=== PATIENT | female | born 1955 | race Caucasian/White ===

== ENCOUNTER 2020-03-05 16:04 | Emergency (ER) | payer OTHER ==
[~2020-03-05] VITALS: Ht 157.5 cm; Wt 80.2 kg
[2020-03-05] MEDS ORDERED: TRAZ-257 PO (17:57)
[2020-03-05] MEDS ORDERED: OMEP40CA97 PO (17:57)
[2020-03-05] MEDS ORDERED: L-ME1CAP PO (17:57)
[2020-03-05] MEDS ORDERED: SIMV40TA20 PO (17:57)
[2020-03-05] MEDS ORDERED: BENA20TA PO (17:57)
[2020-03-05] MEDS ORDERED: [UNRECOGNIZED DRUG - CODE] PO (17:57)
[2020-03-05] MEDS ORDERED: LEVO25TA5 PO (17:57)
[2020-03-05 18:10] LABS: BASO % 0.3 % (0.0-1.0); EOS # 0.1 10^3/uL (0.0-0.5); EOS % 0.8 % (0.0-3.0); HEMATOCRIT 41.7 % (36.0-47.0); HEMOGLOBIN 13.6 g/dl (12.0-15.5); LYMPH % 27.5 % (24.0-44.0); MEAN CORPUSCULAR HEMOGLOBIN 30.8 pg (27.0-33.0); MEAN CORPUSCULAR HGB CONC 32.6 g/dl (32.0-36.5); MEAN CORPUSCULAR VOLUME 94.3 fl (80.0-96.0); MONO # 0.5 10^3/uL (0.0-0.8); MONO % 7.4 % (0.0-5.0); NEUTROPHILS # 4.6 10^3/uL (1.5-8.5); NEUTROPHILS % 63.7 % (36.0-66.0); PLATELET COUNT, AUTOMATED 243 10^3/uL (150-450); RED BLOOD COUNT 4.42 10^6/uL (4.00-5.40); WHITE BLOOD COUNT 7.1 10^3/uL (4.0-10.0)
[2020-03-05 18:39] LABS: ALBUMIN 4.4 GM/DL (3.2-5.2); ALT/SGPT 48 U/L (12-78); BILIRUBIN,DIRECT 0.2 MG/DL (0.0-0.2); BILIRUBIN,TOTAL 0.5 MG/DL (0.2-1.0); BLOOD UREA NITROGEN 15 MG/DL (7-18); CALCIUM LEVEL 9.8 MG/DL (8.8-10.2); CARBON DIOXIDE LEVEL 26 MEQ/L (21-32); CHLORIDE LEVEL 101 MEQ/L (98-107); CREATININE FOR GFR 0.82 MG/DL (0.55-1.30); GLOMERULAR FILTRATION RATE > 60.0 (>45); GLUCOSE, FASTING 99 MG/DL (70-100); LIPASE 173 U/L (73-393); POTASSIUM SERUM 4.4 MEQ/L (3.5-5.1); SODIUM LEVEL 136 MEQ/L (136-145); TOTAL PROTEIN 7.5 GM/DL (6.4-8.2)
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
--- NOTE | 2020-03-05 18:47 | REPVR ---
PROCEDURE INFORMATION: Exam: US Abdomen, Limited; Right Upper Quadrant Exam date and time: 03/05/2020 6:24 PM Age: 64 years old Clinical indication: Abdominal pain; Flank; Right upper quadrant (ruq); Additional info: Ruq pain with diarrhea TECHNIQUE: Imaging protocol: US abdomen. Real time ultrasound with image documentation. Limited exam focused on the right upper quadrant. COMPARISON: No relevant prior studies available. FINDINGS: Liver: Hepatomegaly measures 18.6 cm. There is hepatic steatosis with sparing in the region of the gallbladder fossa. Gallbladder: Cholelithiasis. No pathologic gallbladder wall thickening or pericholecystic fluid. Common bile duct: Common bile duct measures within normal limits. Pancreas: No focal abnormality involving the visualized portions of the pancreas. Right kidney: Right kidney is without hydronephrosis. IMPRESSION: 1. Cholelithiasis. 2. Hepatic steatosis and hepatomegaly. Electronically signed by: Brandon Walden On 03/05/2020 18:47:25 PM
[2020-03-05 20:16] VITALS: BP 164/97
--- NOTE | 2020-03-07 09:41 | ED PDOC ---
Post-Departure Follow-Up dr blanton faxed fomral report of us for fu Chidi Armstrong MD Mar 07, 2020 09:40
== END 2020-03-05 20:18 | disposition home or self-care (01) ==
LOC: M ED 16:04
DX: K80.20 Calculus of gallbladder without cholecystitis without obstruction (principal); M54.2 Cervicalgia; I10 Essential (primary) hypertension; E78.5 Hyperlipidemia, unspecified; Z79.899 Other long term (current) drug therapy; Z79.890 Hormone replacement therapy

== ENCOUNTER → 2020-04-24 | Outpatient (CLI) | payer OTHER, SELFPAY ==
[~2020-04-24] MED LIST: BENA20TA PO; L-ME1CAP PO; LEVO25TA5 PO; OMEP40CA97 PO; SIMV40TA20 PO; TRAZ-257 PO; [UNRECOGNIZED DRUG - CODE] PO
--- NOTE | 2020-04-24 11:15 | REP ---
INDICATION: CALCULUS OF GALLBLADDER. COMPARISON: Ultrasound 03/05/2020. TECHNIQUE/RADIOTRACER AND DOSE: Following the intravenous administration of 6.6 mCi technetium 99 M mebrofenin, multiple images of the right upper quadrant are performed in the anterior and lateral projections. FINDINGS: Homogeneous activity is seen throughout the liver. There is biliary to bowel transit noted at about 15-20 minutes post-injection indicating a patent common bile duct. The gallbladder is not visualized at 60 minutes. Therefore delayed images are performed 3 hours post injection. There does appear to be filling of the gallbladder with radiotracer on these delayed images. IMPRESSION: Delayed filling of the gallbladder as discussed in detail above. The gallbladder is not visualized on images obtained up to 1 hour post injection, but is visualized on the 3 hour delayed images. The findings suggest chronic cholecystitis. <Electronically signed by Dandy Blair > 04/24/20 1110
== END ==
LOC: M RAD 07:19
PROVIDERS: ATTEND Nurse Practitioner Family
DX: K80.20 Calculus of gallbladder without cholecystitis without obstruction (principal)
CPT/HCPCS: 78226; A9537

== ENCOUNTER → 2020-06-12 | Outpatient (CLI) | payer OTHER | LOC: M LABSMTC 12:59 | PROVIDERS: ATTEND Anesthesiology | DX: Z01.812 Encounter for preprocedural laboratory examination (principal); Z20.822 Contact with and (suspected) exposure to COVID-19 ==

== ENCOUNTER 2020-06-17 09:15 | Day surgery (SDC) | payer OTHER ==
[~2020-06-17] VITALS: Ht 157.5 cm; Wt 81.5 kg
[2020-06-17] VITALS (8 sets, daily range): BP systolic 152–162; BP diastolic 73–84
[~2020-06-17 09:15] MED LIST changes: +ACETAMINOPHEN 1000MG 100ML IV BTL (OFIRMEV) (J0131 PER 10MG) As Ordered ONE; +AMPICILLIN SOD/SULBACTAM SOD 3 GM in D5W MINI-BAG PLUS 100 ML IV ONE; +INDOCYANINE GREEN 25MG VIAL (IC-GREEN) IV ONE; +LACRILUBE (AKWA TEARS) OPHTH OINT 3.5 GM As Ordered ONE; +LIDOCAINE 2% 100MG/5ML SDV (FOR ANES.) As Ordered ONE; +LR 1,000 ML IV ONE; +MIDAZOLAM INJ 2MG/2ML VIAL (J2250 PER 1MG) As Ordered ONE; +ONDANSETRON 4MG/2ML VIAL As Ordered ONE; +ROCURONIUM BROMIDE 50 MG/5 ML VIAL As Ordered ONE; +SUGAMMADEX SODIUM 500 MG/5 ML VIAL (BRIDION) As Ordered ONE; +dexameTHASONE 4 MG/ML 1ML VIAL (J1100 PER 1MG) As Ordered ONE; +fentaNYL 100 MCG/2 ML INJECTION (J3010) As Ordered ONE; +propofoL 200 MG/20 ML VIAL As Ordered ONE
[2020-06-17] MEDS ORDERED: LIDOCAINE 1% SDV 30ML VIAL As Ordered ONE (10:25)
[2020-06-17] MEDS ORDERED: BUPIVACAINE HCL 0.25% 30ML VIAL As Ordered ONE (10:25)
[2020-06-17 10:26] LABS: BLOOD UREA NITROGEN 17 MG/DL (7-18); CALCIUM LEVEL 9.7 MG/DL (8.8-10.2); CARBON DIOXIDE LEVEL 33 MEQ/L (21-32); CHLORIDE LEVEL 102 MEQ/L (98-107); CREATININE FOR GFR 0.78 MG/DL (0.55-1.30); GLOMERULAR FILTRATION RATE > 60.0 (>45); GLUCOSE, FASTING 96 MG/DL (70-100); SODIUM LEVEL 137 MEQ/L (136-145)
[2020-06-17] MEDS ORDERED: KETOROLAC 60MG 2ML VIAL As Ordered ONE (11:43)
[2020-06-17] MEDS ORDERED: ePHEDrine SULFATE 25 MG/5 ML(5MG/ML) SYRINGE As Ordered ONE (11:43)
[2020-06-17] MEDS ORDERED: HYDROMORPHONE HCL 0.5 MG/ 0.5 ML SYRINGE (J1170 PER 1) As Ordered ONE (12:23)
[2020-06-17] MEDS ORDERED: fentaNYL 100 MCG/2 ML INJECTION (J3010) IV PRN (12:25)
[2020-06-17] MEDS ORDERED: oxyCODONE 5MG TAB PO PRN (12:25)
[2020-06-17] MEDS ORDERED: LR 1,000 ML IV SCH (12:25)
[2020-06-17] MEDS ORDERED: ONDANSETRON 4MG/2ML VIAL IV PRN ×2 (12:25)
[2020-06-17] MEDS: HYDROMORPHONE HCL 0.5 MG/ 0.5 ML SYRINGE (J1170 PER 1) IV PRN ×2 (12:26→12:31)
[2020-06-17] MEDS ORDERED: PERCOCET 5MG/325MG TAB PO PRN (13:05)
[2020-06-17] MEDS ORDERED: ONDANSETRON 4 MG TAB PO PRN (13:05)
[2020-06-17] MEDS: LEVOTHYROXINE 25MCG TABLET (0.025MG) PO SCH (13:58)
[2020-06-17] MEDS: KETOROLAC 30 MG/ML 1ML VIAL IV PRN (15:27)
[2020-06-17] MEDS: BENAZEPRIL 20 MG TAB PO SCH (15:27)
[2020-06-17] MEDS ORDERED: NEUR100C PO (15:32)
[2020-06-17] MEDS ORDERED: LEXA1TAB2 PO (15:32)
[2020-06-17] MEDS ORDERED: NEUR400C PO (15:32)
[2020-06-17] MEDS ORDERED: SIMVASTATIN 40 MG TAB PO SCH (21:00)
[2020-06-17] MEDS ORDERED: traZODone 100 MG TAB PO SCH (21:00)
[2020-06-17] MEDS ORDERED: GABAPENTIN 100 MG CAP PO ONE (22:00)
[2020-06-18] MEDS ORDERED: UNRESOLVED CLARIFICATION ENTRY XX SCH (00:01)
[2020-06-18] MEDS: KETOROLAC 30 MG/ML 1ML VIAL IV PRN (02:07)
[2020-06-18] MEDS: LEVOTHYROXINE 25MCG TABLET (0.025MG) PO SCH (05:51)
[2020-06-18 06:00] VITALS: BP 175/86
[2020-06-18 08:49] VITALS: BP 175/86
[2020-06-18] MEDS: BENAZEPRIL 20 MG TAB PO SCH (08:49)
[2020-06-18] MEDS ORDERED: GABAPENTIN 300 MG CAP PO ONE (09:00)
[2020-06-18] MEDS ORDERED: OMEPRAZOLE 20 MG CAP PO SCH (09:00)
[2020-06-18 10:00] VITALS: BP 145/72; O2SAT 96
[2020-06-18] MEDS ORDERED: ANUS2.5C2 TOP (10:10)
--- NOTE | 2020-06-18 14:44 | IPNPDOC ---
Text Note Date of Service The patient was seen on 06/18/20. NOTE General Surgery. Dr Lopez. The patient is a 65-year-old female status post robotic-assisted laparoscopic cholecystectomy as per Dr. Lopez 06/17/20. Post procedure in PACU the patient had a decrease in her oxygen saturation to 87% as placed on 2 L nasal cannula with improvement in saturations to 92-94%. The patient is known to have history of THERON with nonfunctional CPAP at home, th erefore continued observation was arranged. This morning, the patient states she is feeling much better. She denies abdominal pain. States she has been up out of bed to the bathroom. No nausea, vomiting, abdominal distention or bloating. Had just finished breakfast. One of her concerns is some bleeding from a hemorrhoid. She reports approximately 1 week ago she had pain and pain with bowel movement but currently pain is better however it is bleeding on and off. Afebrile, VSS. Saturation 93-95% on room air. Gen. Alert and oriented 3. NAD. Lungs clear to auscultation S1 and S2 regular rate and rhythm Abdomen with surgical sites C/D/I. Soft, nontender, nondistended. BS active. ext no edema, well perfused. rectal with thrombosed external hemorrhoid noted. Assessment/plan The patient is a reviewed and examined as per Dr. Lopez. POD1 laparoscopic cholecystectomy. Pain has been well controlled. Patient is tolerating regular diet and has been out of bed. Plan for discharge this morning with outpatient follow-up. Thrombosed hemorrhoid. Likely occurred last week when the patient was having pain, there is a small area of necrotic skin where the patient is likely having some bleeding. No additional surgical intervention recommended at this time. Dr. Lopez has discussed with the patient and will likely improve on its own. Would recommend sitz bath BID-TID. Prescription provided for Anusol. Continue to keep area clean and dry. Reevaluate and outpatient follow-up appointment. VS,Fishbone, I+O VS, Fishbone, I+O Vital Signs Date Time Temp Pulse Resp B/P (MAP) Pulse Ox O2 Delivery O2 Flow Rate FiO2 06/18/20 10:00 99.2 71 19 145/72 (96) 95 Room Air 06/17/20 17:00 2.0 I&O- Last 24 Hours up to 6 AM 06/18/20 06:00 Intake Total 4030 ml Output Total 410 ml Balance 3620 ml Devi Toro Jun 18, 2020 13:21
== END 2020-06-18 12:45 | disposition home or self-care (01) ==
LOC: M SDC 09:15 → M MS5PR 14:00 → M SDC 06-18 12:45
PROVIDERS: ATTEND Surgery
DX: K80.10 Calculus of gallbladder with chronic cholecystitis without obstruction (principal); I10 Essential (primary) hypertension; F41.9 Anxiety disorder, unspecified; F32.9 Major depressive disorder, single episode, unspecified; E78.5 Hyperlipidemia, unspecified; E07.9 Disorder of thyroid, unspecified; Z79.899 Other long term (current) drug therapy
CPT/HCPCS: 36415; 47563; 80048; 88304; 96374; 96376; J0131; J1100; J1885; J2250; J2405; J3010; Q9968; S2900

== ENCOUNTER 2020-12-16 14:48 | Emergency (ER) | payer OTHER ==
[~2020-12-16] VITALS: Ht 157.5 cm; Wt 81.8 kg
[2020-12-16 15:02] VITALS: BP 187/85
== END 2020-12-16 21:59 | disposition left against medical advice (07) ==
LOC: M ED 14:48
DX: Z53.29 Procedure and treatment not carried out because of patient's decision for other reasons (principal)

== ENCOUNTER → 2020-12-16 | Outpatient (CLI) | payer OTHER ==
[~2020-12-16] MED LIST changes: -ACETAMINOPHEN 1000MG 100ML IV BTL (OFIRMEV) (J0131 PER 10MG) As Ordered ONE; -AMPICILLIN SOD/SULBACTAM SOD 3 GM in D5W MINI-BAG PLUS 100 ML IV ONE; +ANUS2.5C2 TOP; -INDOCYANINE GREEN 25MG VIAL (IC-GREEN) IV ONE; -LACRILUBE (AKWA TEARS) OPHTH OINT 3.5 GM As Ordered ONE; +LEXA1TAB2 PO; -LIDOCAINE 2% 100MG/5ML SDV (FOR ANES.) As Ordered ONE; -LR 1,000 ML IV ONE; -MIDAZOLAM INJ 2MG/2ML VIAL (J2250 PER 1MG) As Ordered ONE; +NEUR100C PO; +NEUR400C PO; +OMEP40CA4 PO; -OMEP40CA97 PO; -ONDANSETRON 4MG/2ML VIAL As Ordered ONE; -ROCURONIUM BROMIDE 50 MG/5 ML VIAL As Ordered ONE; -SUGAMMADEX SODIUM 500 MG/5 ML VIAL (BRIDION) As Ordered ONE; -dexameTHASONE 4 MG/ML 1ML VIAL (J1100 PER 1MG) As Ordered ONE; -fentaNYL 100 MCG/2 ML INJECTION (J3010) As Ordered ONE; -propofoL 200 MG/20 ML VIAL As Ordered ONE
--- NOTE | 2020-12-17 07:30 | REP ---
INDICATION: LEFT HIP PAIN COMPARISON: None. TECHNIQUE: AP view of the pelvis with neutral and frog-lateral views of the left hip. FINDINGS: Hip joints demonstrate relatively age-related symmetric arthritic changes including increased sclerosis with minimal joint space narrowing and marginal spurring. 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 IMPRESSION: Degenerative changes as noted above. <Electronically signed by Hood Yanez > 12/17/20 [id number]
== END ==
LOC: M SOG 13:37
PROVIDERS: ATTEND Orthopaedic Surgery
DX: M16.12 Unilateral primary osteoarthritis, left hip (principal)

== ENCOUNTER → 2021-01-14 | Outpatient (CLI) | payer OTHER | LOC: M LABSMTC 09:10 | PROVIDERS: ATTEND Anesthesiology | DX: Z01.812 Encounter for preprocedural laboratory examination (principal); Z20.822 Contact with and (suspected) exposure to COVID-19 ==

== ENCOUNTER 2021-01-19 10:09 | Day surgery (SDC) | payer OTHER ==
[~2021-01-19] VITALS: Ht 157.5 cm; Wt 79.8 kg
[~2021-01-19 10:09] MED LIST changes: +NS 1,000 ML IV ONE
[2021-01-19] MEDS ORDERED: fentaNYL 100 MCG/2 ML INJECTION (J3010) As Ordered ONE (10:59)
[2021-01-19] MEDS ORDERED: LIDOCAINE 2% 100MG/5ML SDV (FOR ANES.) As Ordered ONE (10:59)
[2021-01-19] MEDS ORDERED: propofoL 200 MG/20 ML VIAL As Ordered ONE (11:00)
--- NOTE | 2021-01-19 11:37 | ROOR ---
Patient Name: Cecy Whitmore Procedure Date: 01/19/2021 11:12 AM Date of : 1955 Age: 65 Room: [facility] Gender: Female Note Status: Finalized Procedure: Upper GI endoscopy Indications: Epigastric abdominal pain, Abdominal pain in the right upper quadrant Providers: Calos Lopez MD Referring MD: Dilma Hook NP Requesting Provider: Medicines: Monitored Anesthesia Care Complications: No immediate complications. Procedure: Pre-Anesthesia Assessment: - Prior to the procedure, a History and Physical was performed, and patient medications and allergies were reviewed. The patient is competent. The risks and benefits of the procedure and the sedation options and risks were discussed with the patient. All questions were answered and informed consent was obtained. Patient identification and proposed procedure were verified by the physician, the nurse and the building contractor in the endoscopy suite. Mental Status Examination: alert and oriented. Airway Examination: normal oropharyngeal airway and neck mobility. Respiratory Examination: clear to auscultation. CV Examination: normal. Prophylactic Antibiotics: The patient does not require prophylactic antibiotics. Prior Anticoagulants: The patient has taken no previous anticoagulant or antiplatelet agents. ASA Grade Assessment: III - A patient with severe systemic disease. After reviewing the risks and benefits, the patient was deemed in satisfactory condition to undergo the procedure. The anesthesia plan was to use monitored anesthesia care (MAC). Immediately prior to administration of medications, the patient was re-assessed for adequacy to receive sedatives. The heart rate, respiratory rate, oxygen saturations, blood pressure, adequacy of pulmonary ventilation, and response to care were monitored throughout the procedure. The physical status of the patient was re-assessed after the procedure. The Endoscope was introduced through the mouth, and advanced to the second part of duodenum. The upper GI endoscopy was somewhat difficult due to the patient's oxygen desaturation. The patient tolerated the procedure poorly due to the patient's respiratory instability. Findings: The examined esophagus was normal. The Z-line was regular and was found 35 cm from the incisors. A small hiatal hernia was present. Diffuse nodular mucosa was found in the gastric body. Biopsies were taken with a cold forceps for histology. Estimated blood loss was minimal. The gastric antrum was normal. Biopsies were taken with a cold forceps for Helicobacter pylori testing. Estimated blood loss was minimal. The first portion of the duodenum and second portion of the duodenum were normal. Impression: - Normal esophagus. - Z-line regular, 35 cm from the incisors. - Small hiatal hernia. - Nodular mucosa in the gastric body. Biopsied. - Normal antrum. Biopsied. - Normal first portion of the duodenum and second portion of the duodenum. Recommendation: - Discharge patient to home (ambulatory). - Await pathology results. - Use Prilosec (omeprazole) 40 mg PO BID for 3 months. Procedure Code(s): --- Professional --- 45005, Esophagogastroduodenoscopy, flexible, transoral; with biopsy, single or multiple Diagnosis Code(s): --- Professional --- K44.9, Diaphragmatic hernia without obstruction or gangrene K31.89, Other diseases of stomach and duodenum R10.13, Epigastric pain R10.11, Right upper quadrant pain CPT copyright 2019 [employer]. All rights reserved. The codes documented in this report are preliminary and upon certified medical coder review may be revised to meet current compliance requirements. Calos Lopez MD Calos Lopez MD 01/19/2021 11:36:53 AM Electronically signed by Calos Lopez MD Number of Addenda: 0 Note Initiated On: 01/19/2021 11:12 AM Estimated Blood Loss: Estimated blood loss was minimal.
[2021-01-19 12:08] VITALS: BP 169/77
== END 2021-01-19 12:10 | disposition home or self-care (01) ==
LOC: M OPP 10:09
PROVIDERS: ATTEND Surgery
DX: K31.89 Other diseases of stomach and duodenum (principal); K44.9 Diaphragmatic hernia without obstruction or gangrene; R10.13 Epigastric pain; R10.11 Right upper quadrant pain; Z79.899 Other long term (current) drug therapy; Z53.31 Laparoscopic surgical procedure converted to open procedure
CPT/HCPCS: 43239; 88305; J3010

== ENCOUNTER → 2021-01-20 | Outpatient (REF) | payer OTHER ==
[~2021-01-20] MED LIST changes: -NS 1,000 ML IV ONE
[2021-01-20 15:57] LABS: BASO % 0.8 % (0.0-1.0); EOS # 0.1 10^3/uL (0.0-0.5); EOS % 1.7 % (0.0-3.0); HEMATOCRIT 40.9 % (36.0-47.0); HEMOGLOBIN 13.5 g/dl (12.0-15.5); LYMPH # 1.6 10^3/uL (1.5-5.0); LYMPH % 31.6 % (24.0-44.0); MEAN CORPUSCULAR HEMOGLOBIN 31.9 pg (27.0-33.0); MEAN CORPUSCULAR VOLUME 96.7 fl (80.0-96.0); MONO # 0.4 10^3/uL (0.0-0.8); MONO % 7.3 % (2.0-8.0); NEUTROPHILS % 58.2 % (36.0-66.0); PLATELET COUNT, AUTOMATED 239 10^3/uL (150-450); RED BLOOD COUNT 4.23 10^6/uL (4.00-5.40); WHITE BLOOD COUNT 5.2 10^3/uL (4.0-10.0)
[2021-01-20 17:28] LABS: ALBUMIN 3.7 GM/DL (3.2-5.2); ALT/SGPT 55 U/L (12-78); BILIRUBIN,TOTAL 0.3 MG/DL (0.2-1.0); BLOOD UREA NITROGEN 5 MG/DL (7-18); CALCIUM LEVEL 9.4 MG/DL (8.8-10.2); CARBON DIOXIDE LEVEL 29 MEQ/L (21-32); CHLORIDE LEVEL 105 MEQ/L (98-107); CHOLESTEROL LEVEL 228 MG/DL (<200); CREATININE FOR GFR 0.74 MG/DL (0.55-1.30); FREE T4 0.82 NG/DL (0.76-1.46); GLOMERULAR FILTRATION RATE > 60.0 (>45); GLUCOSE, FASTING 105 MG/DL (70-100); HDL CHOLESTEROL 76 MG/DL (>40); LDL CHOLESTEROL 90 MG/DL (<100); NON-HDL-C 152 MG/DL; POTASSIUM SERUM 4.1 MEQ/L (3.5-5.1); SODIUM LEVEL 138 MEQ/L (136-145); TOTAL PROTEIN 6.9 GM/DL (6.4-8.2); TRIGLYCERIDES LEVEL 312 MG/DL (<150)
[2021-01-20 18:46] LABS: HEMOGLOBIN A1c 5.4 %
== END ==
LOC: M SFHCCAPE 10:49
PROVIDERS: ATTEND Nurse Practitioner Family
DX: M48.02 Spinal stenosis, cervical region (principal); F32.9 Major depressive disorder, single episode, unspecified; I10 Essential (primary) hypertension; E78.2 Mixed hyperlipidemia; K21.9 Gastro-esophageal reflux disease without esophagitis; Z13.1 Encounter for screening for diabetes mellitus

== ENCOUNTER → 2021-09-28 | Outpatient (CLI) | payer OTHER | LOC: M CLY 16:03 | PROVIDERS: ATTEND Nurse Practitioner Family | DX: R05.3 Chronic cough (principal) | CPT/HCPCS: 71046; G0463 ==

== ENCOUNTER → 2021-11-09 | Outpatient (CLI) | payer OTHER | LOC: M WHC 10:45 | PROVIDERS: ATTEND Nurse Practitioner Family | DX: Z12.31 Encounter for screening mammogram for malignant neoplasm of breast (principal) ==

== ENCOUNTER → 2021-12-15 | Outpatient (CLI) | payer OTHER | LOC: M CLY 11:33 | PROVIDERS: ATTEND Nurse Practitioner Family | DX: M19.021 Primary osteoarthritis, right elbow (principal); M79.601 Pain in right arm; M79.602 Pain in left arm ==

== ENCOUNTER → 2022-02-03 | Outpatient (CLI) | payer OTHER | LOC: M RAD 14:47 | PROVIDERS: ATTEND Surgery Vascular Surgery | DX: I83.813 Varicose veins of bilateral lower extremities with pain (principal) ==

== ENCOUNTER → 2022-03-15 | Outpatient (REF) | payer OTHER ==
[2022-03-15 19:01] LABS: BASO # 0.1 10^3/uL (0.0-0.2); BASO % 0.9 % (0.0-1.0); EOS # 0.1 10^3/uL (0.0-0.5); EOS % 1.8 % (0.0-3.0); HEMOGLOBIN 13.7 g/dl (12.0-15.5); LYMPH % 35.4 % (24.0-44.0); MEAN CORPUSCULAR HEMOGLOBIN 31.9 pg (27.0-33.0); MEAN CORPUSCULAR HGB CONC 33.4 g/dl (32.0-36.5); MEAN CORPUSCULAR VOLUME 95.3 fl (80.0-96.0); MONO # 0.4 10^3/uL (0.0-0.8); MONO % 7.7 % (2.0-8.0); NEUTROPHILS % 53.8 % (36.0-66.0); PLATELET COUNT, AUTOMATED 217 10^3/uL (150-450); WHITE BLOOD COUNT 5.6 10^3/uL (4.0-10.0)
[2022-03-15 19:19] LABS: CHLORIDE LEVEL 101 MMOL/L (98-107); POTASSIUM SERUM 5.6 MMOL/L (3.5-5.1); SODIUM LEVEL 138 MMOL/L (136-145)
[2022-03-15 19:22] LABS: ALBUMIN 3.9 G/DL (3.2-5.2); CARBON DIOXIDE LEVEL 26 MMOL/L (20-31)
[2022-03-15 19:24] LABS: TRIGLYCERIDES LEVEL 360 MG/DL (<150)
[2022-03-15 19:26] LABS: BLOOD UREA NITROGEN 9 MG/DL (9-23)
[2022-03-15 19:28] LABS: ALKALINE PHOSPHATASE 116 U/L (46-116); CALCIUM LEVEL 9.5 MG/DL (8.3-10.6); GLUCOSE, FASTING 112 MG/DL (74-106)
[2022-03-15 19:29] LABS: ALT/SGPT 71 U/L (7.0-40)
[2022-03-15 19:30] LABS: AST/SGOT 81 U/L (<34); BILIRUBIN,TOTAL 0.4 MG/DL (0.3-1.2); CHOLESTEROL LEVEL 278 MG/DL (<200); CHOLESTEROL RISK RATIO 2.79 (<5); CREATININE FOR GFR 0.67 MG/DL (0.55-1.30); GLOMERULAR FILTRATION RATE > 60.0 (>45); HDL CHOLESTEROL 99.4 MG/DL (>40); LDL CHOLESTEROL 106.6 MG/DL (<100); NON-HDL-C 179 MG/DL
[2022-03-15 19:31] LABS: THYROID STIMULATING HORMONE 3.327 uIU/ML (0.55-4.78)
[2022-03-15 19:32] LABS: FREE T4 0.89 NG/DL (0.89-1.76)
[2022-03-15 19:37] LABS: HEMOGLOBIN A1c 5.1 % (4.0-6.0)
== END ==
LOC: M SFHCCLAY 11:09
PROVIDERS: ATTEND Physician Assistant
DX: R19.7 Diarrhea, unspecified (principal); F32.9 Major depressive disorder, single episode, unspecified; Z13.1 Encounter for screening for diabetes mellitus; E78.2 Mixed hyperlipidemia

== ENCOUNTER → 2022-03-17 | Outpatient (CLI) | payer OTHER | LOC: M PLAIMG 11:58 | PROVIDERS: ATTEND Orthopaedic Surgery Hand Surgery | DX: M75.21 Bicipital tendinitis, right shoulder (principal) ==

== ENCOUNTER → 2022-05-20 | Outpatient (CLI) | payer MEDICARE, OTHER ==
[~2022-05-20] MED LIST changes: +BUPIVACAINE HCL 0.5% 10ML VIAL As Ordered ONE; +LIDOCAINE 1% MDV 20ML VIAL As Ordered ONE; +TRIAMCINOLONE ACETONIDE SUSP 40MG/ML 1ML VIAL As Ordered ONE
== END ==
LOC: M IRPRO 12:37
PROVIDERS: ATTEND Orthopaedic Surgery Hand Surgery
DX: M75.21 Bicipital tendinitis, right shoulder (principal)
CPT/HCPCS: 20550; 76942; J3301

== ENCOUNTER → 2022-05-26 | Outpatient (CLI) | payer MEDICARE, OTHER ==
[~2022-05-26] MED LIST changes: -BUPIVACAINE HCL 0.5% 10ML VIAL As Ordered ONE; -LIDOCAINE 1% MDV 20ML VIAL As Ordered ONE; -TRIAMCINOLONE ACETONIDE SUSP 40MG/ML 1ML VIAL As Ordered ONE
== END ==
LOC: M SOG 14:56
PROVIDERS: ATTEND Student in an Organized Health Care Education/Training Program
DX: M75.21 Bicipital tendinitis, right shoulder (principal)

== ENCOUNTER → 2022-06-16 | Outpatient (CLI) | payer MEDICARE, OTHER | LOC: M PLARAD 08:20 | PROVIDERS: ATTEND Student in an Organized Health Care Education/Training Program | DX: M75.21 Bicipital tendinitis, right shoulder (principal); M75.31 Calcific tendinitis of right shoulder; M25.411 Effusion, right shoulder ==

== ENCOUNTER → 2022-10-21 | Outpatient (REF) | payer MEDICARE, OTHER ==
[2022-10-21 19:00] LABS: BASO % 0.6 % (0.0-1.0); EOS # 0.1 10^3/uL (0.0-0.5); EOS % 1.9 % (0.0-3.0); HEMATOCRIT 42.5 % (36.0-47.0); HEMOGLOBIN 14.1 g/dl (12.0-15.5); LYMPH # 1.7 10^3/uL (1.5-5.0); LYMPH % 34.2 % (24.0-44.0); MEAN CORPUSCULAR HEMOGLOBIN 32.3 pg (27.0-33.0); MEAN CORPUSCULAR HGB CONC 33.2 g/dl (32.0-36.5); MEAN CORPUSCULAR VOLUME 97.5 fl (80.0-96.0); MONO # 0.6 10^3/uL (0.0-0.8); MONO % 11.5 % (2.0-8.0); NEUTROPHILS # 2.5 10^3/uL (1.5-8.5); NEUTROPHILS % 51.6 % (36.0-66.0); PLATELET COUNT, AUTOMATED 241 10^3/uL (150-450); RED BLOOD COUNT 4.36 10^6/uL (4.00-5.40); WHITE BLOOD COUNT 4.9 10^3/uL (4.0-10.0)
[2022-10-21 19:10] LABS: HEMOGLOBIN A1c 5.3 % (4.0-6.0)
[2022-10-21 19:34] LABS: ALBUMIN 4.2 G/DL (3.2-5.2); ALKALINE PHOSPHATASE 125 U/L (46-116); ALT/SGPT 42 U/L (7.0-40); AST/SGOT 49 U/L (<34); BILIRUBIN,TOTAL 0.5 MG/DL (0.3-1.2); BLOOD UREA NITROGEN 9 MG/DL (9-23); CALCIUM LEVEL 9.3 MG/DL (8.3-10.6); CARBON DIOXIDE LEVEL 26 MMOL/L (20-31); CHLORIDE LEVEL 102 MMOL/L (98-107); CHOLESTEROL LEVEL 241 MG/DL (<200); CHOLESTEROL RISK RATIO 2.84 (<5); CREATININE FOR GFR 0.62 MG/DL (0.55-1.30); FREE T4 0.85 NG/DL (0.89-1.76); GLOMERULAR FILTRATION RATE > 60.0 (>45); GLUCOSE, FASTING 103 MG/DL (74-106); HDL CHOLESTEROL 84.7 MG/DL (>40); LDL CHOLESTEROL 98.9 MG/DL (<100); NON-HDL-C 156.3 MG/DL; POTASSIUM SERUM 4.9 MMOL/L (3.5-5.1); SODIUM LEVEL 135 MMOL/L (136-145); TRIGLYCERIDES LEVEL 287 MG/DL (<150)
[2022-10-21 19:36] LABS: THYROID STIMULATING HORMONE 2.712 uIU/ML (0.55-4.78)
== END ==
LOC: M SFHCCLAY 12:53
PROVIDERS: ATTEND Nurse Practitioner Family
DX: Z13.1 Encounter for screening for diabetes mellitus (principal); R19.7 Diarrhea, unspecified; E78.2 Mixed hyperlipidemia

== ENCOUNTER → 2022-11-16 | Outpatient (CLI) | payer MEDICARE, OTHER | LOC: M RAD 07:37 | PROVIDERS: ATTEND Physician Assistant Medical | DX: R16.0 Hepatomegaly, not elsewhere classified (principal); K76.0 Fatty (change of) liver, not elsewhere classified; R74.01 Elevation of levels of liver transaminase levels; Z90.49 Acquired absence of other specified parts of digestive tract ==

== ENCOUNTER → 2022-11-23 | Outpatient (CLI) | payer MEDICARE, OTHER | LOC: M CLY 14:33 | PROVIDERS: ATTEND Nurse Practitioner Family | DX: M54.41 Lumbago with sciatica, right side (principal) ==

== ENCOUNTER → 2022-12-07 | Outpatient (CLI) | payer MEDICARE, OTHER | LOC: M WHC 14:07 | PROVIDERS: ATTEND Nurse Practitioner Family | DX: Z12.31 Encounter for screening mammogram for malignant neoplasm of breast (principal) ==

== ENCOUNTER → 2022-12-26 | Outpatient (REF) | payer MEDICARE, OTHER ==
[~2022-12-26] MED LIST changes: +METACAP3; +[UNRECOGNIZED DRUG - CODE]
[2022-12-26 19:43] LABS: TOTAL IRON BINDING CAPACITY 317 UG/DL (250-425)
[2022-12-26 19:44] LABS: IRON (FE) 96 UG/DL (50-170); PERCENT SATURATION 30.3 % (13.2-45.0)
[2022-12-26 20:17] LABS: HEPATITIS B CORE ANTIBODY IGM NEGATIVE (NEGATIVE); HEPATITIS C VIRUS ABY INDEX 0.11 INDEX (<0.8)
== END ==
LOC: M LABDRAWC 17:46
PROVIDERS: ATTEND Physician Assistant Medical
DX: R74.01 Elevation of levels of liver transaminase levels (principal)

== ENCOUNTER 2023-01-06 11:57 | Day surgery (SDC) | payer MEDICARE, OTHER ==
[~2023-01-06] VITALS: Ht 154.9 cm; Wt 78.7 kg
[~2023-01-06 11:57] MED LIST changes: +NS 1,000 ML IV ONE
[2023-01-06] MEDS ORDERED: fentaNYL 100 MCG/2 ML INJECTION As Ordered ONE (13:52)
[2023-01-06] MEDS ORDERED: propofoL 200 MG/20 ML VIAL As Ordered ONE ×2 (13:54→14:12)
[2023-01-06] MEDS ORDERED: LIDOCAINE 2% 100MG/5ML SDV (FOR ANES.) As Ordered ONE (13:54)
[2023-01-06 14:22] VITALS: TEMP 97.8
[2023-01-06 14:25] VITALS: BP 166/79; O2SAT 97
== END 2023-01-06 14:59 | disposition home or self-care (01) ==
LOC: M OPP 11:57
PROVIDERS: ATTEND Internal Medicine Gastroenterology
DX: Z86.010 Personal history of colon polyps (principal); K57.30 Diverticulosis of large intestine without perforation or abscess without bleeding; K64.8 Other hemorrhoids; R12 Heartburn; K75.9 Inflammatory liver disease, unspecified; K44.9 Diaphragmatic hernia without obstruction or gangrene; I10 Essential (primary) hypertension; E78.00 Pure hypercholesterolemia, unspecified; E03.9 Hypothyroidism, unspecified; K76.0 Fatty (change of) liver, not elsewhere classified; M19.90 Unspecified osteoarthritis, unspecified site; F41.9 Anxiety disorder, unspecified; F32.A Depression, unspecified; G47.30 Sleep apnea, unspecified; M26.609 Unspecified temporomandibular joint disorder, unspecified side; Z79.890 Hormone replacement therapy; Z79.899 Other long term (current) drug therapy
CPT/HCPCS: 43235; G0105; J3010

== ENCOUNTER → 2023-05-23 | Outpatient (REF) | payer MEDICARE, OTHER ==
[~2023-05-23] MED LIST changes: -NS 1,000 ML IV ONE
== END ==
LOC: M SFHCCAPE 13:28
PROVIDERS: ATTEND Physician Assistant Medical
DX: R30.0 Dysuria (principal)

== ENCOUNTER → 2023-05-30 | Outpatient (CLI) | payer MEDICARE, OTHER | LOC: M CLY 14:28 | PROVIDERS: ATTEND Nurse Practitioner Family | DX: M16.9 Osteoarthritis of hip, unspecified (principal); R10.32 Left lower quadrant pain; R10.31 Right lower quadrant pain; R10.2 Pelvic and perineal pain ==

== ENCOUNTER → 2023-06-01 | Outpatient (REF) | payer MEDICARE, OTHER ==
[2023-06-01 17:25] LABS: BASO % 0.6 % (0.0-1.0); EOS # 0.1 10^3/uL (0.0-0.5); EOS % 1.4 % (0.0-3.0); HEMATOCRIT 40.5 % (36.0-47.0); HEMOGLOBIN 13.5 g/dl (12.0-15.5); LYMPH # 1.7 10^3/uL (1.5-5.0); LYMPH % 27.1 % (24.0-44.0); MEAN CORPUSCULAR HEMOGLOBIN 31.9 pg (27.0-33.0); MEAN CORPUSCULAR HGB CONC 33.3 g/dl (32.0-36.5); MEAN CORPUSCULAR VOLUME 95.7 fl (80.0-96.0); MONO # 0.5 10^3/uL (0.0-0.8); MONO % 7.3 % (2.0-8.0); NEUTROPHILS # 4.1 10^3/uL (1.5-8.5); NEUTROPHILS % 63.4 % (36.0-66.0); PLATELET COUNT, AUTOMATED 212 10^3/uL (150-450); RED BLOOD COUNT 4.23 10^6/uL (4.00-5.40); WHITE BLOOD COUNT 6.4 10^3/uL (4.0-10.0)
[2023-06-01 17:36] LABS: HEMOGLOBIN A1c 5.3 % (4.0-6.0)
[2023-06-01 17:49] LABS: ALBUMIN 3.9 G/DL (3.2-5.2); ALKALINE PHOSPHATASE 108 U/L (46-116); ALT/SGPT 34 U/L (7.0-40); AST/SGOT 29 U/L (<34); BILIRUBIN,TOTAL 0.4 MG/DL (0.3-1.2); BLOOD UREA NITROGEN 14 MG/DL (9-23); CARBON DIOXIDE LEVEL 25 MMOL/L (20-31); CHLORIDE LEVEL 105 MMOL/L (98-107); CHOLESTEROL LEVEL 246 MG/DL (<200); CHOLESTEROL RISK RATIO 2.77 (<5); CREATININE FOR GFR 0.71 MG/DL (0.55-1.30); GLOMERULAR FILTRATION RATE > 60.0 (>45); GLUCOSE, FASTING 97 MG/DL (74-106); HDL CHOLESTEROL 88.7 MG/DL (>40); LDL CHOLESTEROL 78.3 MG/DL (<100); NON-HDL-C 157.3 MG/DL; SODIUM LEVEL 138 MMOL/L (136-145); TOTAL PROTEIN 6.7 G/DL (5.7-8.2); TRIGLYCERIDES LEVEL 395 MG/DL (<150)
[2023-06-01 17:50] LABS: FREE T4 0.78 NG/DL (0.89-1.76); THYROID STIMULATING HORMONE 3.232 uIU/ML (0.55-4.78)
== END ==
LOC: M SFHCCLAY 14:44
PROVIDERS: ATTEND Nurse Practitioner Family
DX: E78.2 Mixed hyperlipidemia (principal); I10 Essential (primary) hypertension; K21.9 Gastro-esophageal reflux disease without esophagitis; E03.9 Hypothyroidism, unspecified; Z13.1 Encounter for screening for diabetes mellitus; Z79.899 Other long term (current) drug therapy

== ENCOUNTER 2023-06-09 16:14 | Emergency (ER) | payer MEDICARE, OTHER ==
[~2023-06-09] VITALS: Ht 165.1 cm; Wt 76.4 kg
[2023-06-09 17:45] LABS: BASO % 0.4 % (0.0-1.0); EOS # 0.1 10^3/uL (0.0-0.5); EOS % 1.5 % (0.0-3.0); HEMATOCRIT 38.7 % (36.0-47.0); HEMOGLOBIN 13.1 g/dl (12.0-15.5); LYMPH % 29.1 % (24.0-44.0); MEAN CORPUSCULAR HEMOGLOBIN 31.7 pg (27.0-33.0); MEAN CORPUSCULAR HGB CONC 33.9 g/dl (32.0-36.5); MEAN CORPUSCULAR VOLUME 93.7 fl (80.0-96.0); MONO # 0.5 10^3/uL (0.0-0.8); MONO % 7.9 % (2.0-8.0); NEUTROPHILS # 4.2 10^3/uL (1.5-8.5); PLATELET COUNT, AUTOMATED 204 10^3/uL (150-450); RED BLOOD COUNT 4.13 10^6/uL (4.00-5.40); WHITE BLOOD COUNT 6.8 10^3/uL (4.0-10.0)
[2023-06-09 18:17] LABS: ALBUMIN 3.8 G/DL (3.2-5.2); ALKALINE PHOSPHATASE 99 U/L (46-116); ALT/SGPT 37 U/L (7.0-40); AST/SGOT 48 U/L (<34); BILIRUBIN,DIRECT < 0.1 MG/DL (<0.4); BILIRUBIN,TOTAL 0.3 MG/DL (0.3-1.2); BLOOD UREA NITROGEN 15 MG/DL (9-23); CALCIUM LEVEL 9.1 MG/DL (8.3-10.6); CARBON DIOXIDE LEVEL 23 MMOL/L (20-31); CHLORIDE LEVEL 105 MMOL/L (98-107); CREATININE FOR GFR 0.61 MG/DL (0.55-1.30); GLOMERULAR FILTRATION RATE > 60.0 (>45); GLUCOSE, FASTING 100 MG/DL (74-106); LIPASE 49 U/L (12-53); POTASSIUM SERUM 4.7 MMOL/L (3.5-5.1); SODIUM LEVEL 136 MMOL/L (136-145); TOTAL PROTEIN 6.7 G/DL (5.7-8.2)
[2023-06-09] MEDS: KETOROLAC 30 MG/ML 1ML VIAL IV ONE (19:14)
[2023-06-09] MEDS: NS 1,000 ML IV ONE (19:14)
[2023-06-09] MEDS ORDERED: ISOVUE-370 76% 100ML VIAL As Ordered ONE (19:22)
[2023-06-09] MEDS: LIDOCAINE 2% 5ML JELLY UROJET TOP ONE (20:50)
[2023-06-09 22:00] VITALS: BP 173/132; TEMP 97.7; O2SAT 95
== END 2023-06-09 22:27 | disposition home or self-care (01) ==
LOC: M ED 16:14
DX: R33.9 Retention of urine, unspecified (principal); E66.9 Obesity, unspecified; K44.9 Diaphragmatic hernia without obstruction or gangrene; R16.0 Hepatomegaly, not elsewhere classified; K76.0 Fatty (change of) liver, not elsewhere classified; I10 Essential (primary) hypertension; K57.92 Diverticulitis of intestine, part unspecified, without perforation or abscess without bleeding; E78.5 Hyperlipidemia, unspecified; E03.9 Hypothyroidism, unspecified; F41.9 Anxiety disorder, unspecified; F32.A Depression, unspecified; Z79.899 Other long term (current) drug therapy
CPT/HCPCS: 51702; 74177; 80047; 80048; 80076; 81001; 83605; 83690; 85025; 93005; 93041; 96361; 96374; 99285; J1885; Q9967

== ENCOUNTER 2023-06-12 17:20 | Emergency (ER) | payer MEDICARE, OTHER ==
[~2023-06-12] VITALS: Ht 157.5 cm; Wt 81.6 kg
[2023-06-12] MEDS: NS 1,000 ML IV ONE (21:11)
[2023-06-12 21:22] LABS: BASO # 0.1 10^3/uL (0.0-0.2); BASO % 0.6 % (0.0-1.0); EOS # 0.2 10^3/uL (0.0-0.5); EOS % 1.9 % (0.0-3.0); HEMATOCRIT 38.5 % (36.0-47.0); HEMOGLOBIN 13.1 g/dl (12.0-15.5); LYMPH # 2.5 10^3/uL (1.5-5.0); LYMPH % 32.4 % (24.0-44.0); MEAN CORPUSCULAR HEMOGLOBIN 31.9 pg (27.0-33.0); MEAN CORPUSCULAR VOLUME 93.7 fl (80.0-96.0); MONO # 0.6 10^3/uL (0.0-0.8); MONO % 7.3 % (2.0-8.0); NEUTROPHILS # 4.5 10^3/uL (1.5-8.5); NEUTROPHILS % 57.5 % (36.0-66.0); PLATELET COUNT, AUTOMATED 201 10^3/uL (150-450); RED BLOOD COUNT 4.11 10^6/uL (4.00-5.40); WHITE BLOOD COUNT 7.9 10^3/uL (4.0-10.0)
[2023-06-12 21:49] LABS: LIPASE 45 U/L (12-53)
[2023-06-12 21:51] LABS: ALBUMIN 3.7 G/DL (3.2-5.2); ALKALINE PHOSPHATASE 91 U/L (46-116); ALT/SGPT 40 U/L (7.0-40); AST/SGOT 32 U/L (<34); BILIRUBIN,DIRECT < 0.1 MG/DL (<0.4); BILIRUBIN,TOTAL 0.4 MG/DL (0.3-1.2); BLOOD UREA NITROGEN 10 MG/DL (9-23); CALCIUM LEVEL 9.5 MG/DL (8.3-10.6); CARBON DIOXIDE LEVEL 26 MMOL/L (20-31); CHLORIDE LEVEL 105 MMOL/L (98-107); GLOMERULAR FILTRATION RATE > 60.0 (>45); GLUCOSE, FASTING 93 MG/DL (74-106); POTASSIUM SERUM 3.8 MMOL/L (3.5-5.1); SODIUM LEVEL 137 MMOL/L (136-145); TOTAL PROTEIN 6.5 G/DL (5.7-8.2)
[2023-06-12] MEDS: GASTROGRAFIN SOLUTION 30ML PO SCH (22:23)
[2023-06-12] MEDS ORDERED: ISOVUE-370 76% 100ML VIAL As Ordered ONE (23:42)
[2023-06-13 02:06] VITALS: BP 154/79; TEMP 98.4; O2SAT 97
== END 2023-06-13 02:08 | disposition home or self-care (01) ==
LOC: M ED 17:20
DX: R10.9 Unspecified abdominal pain (principal); N32.9 Bladder disorder, unspecified; K57.30 Diverticulosis of large intestine without perforation or abscess without bleeding; I10 Essential (primary) hypertension; E78.5 Hyperlipidemia, unspecified; F41.9 Anxiety disorder, unspecified; Z79.899 Other long term (current) drug therapy
CPT/HCPCS: 74177; 80048; 80076; 81001; 83690; 85025; 87086; 93041; 96360; 96361; 99284; Q9963; Q9967

== ENCOUNTER → 2023-06-21 | Outpatient (CLI) | payer MEDICARE, OTHER | LOC: M PLAIMG 10:44 | PROVIDERS: ATTEND Nurse Practitioner Family | DX: R10.2 Pelvic and perineal pain (principal); R10.32 Left lower quadrant pain; K57.90 Diverticulosis of intestine, part unspecified, without perforation or abscess without bleeding; Z90.710 Acquired absence of both cervix and uterus ==

== ENCOUNTER → 2023-08-01 | Outpatient (REF) | payer MEDICARE, OTHER | LOC: M SFHCCLAY 16:44 | PROVIDERS: ATTEND Nurse Practitioner Family | DX: R19.7 Diarrhea, unspecified (principal) ==

== ENCOUNTER → 2023-10-27 | Outpatient (REF) | payer MEDICARE, OTHER ==
[~2023-10-27] MED LIST changes: +AMOX875T PO; +AMOX875T2 PO; +CARBOT AS; +CIPR7.5D2 AS; +CIPRHCOTIC AS; +DEBR6.5S4 AS; +DIAZ5TAB PO; +GABA-1171 PO; +LEVO50TA5 PO; +MECL-86 PO; -METACAP3; +METACAP3 PO; +SUCR1TAB56 PO; +TRAZ-252 PO; +[UNRECOGNIZED DRUG - CODE] PO
[2023-10-27 13:06] LABS: BASO # 0.1 10^3/uL (0.0-0.2); BASO % 0.6 % (0.0-1.0); EOS # 0.1 10^3/uL (0.0-0.5); EOS % 0.6 % (0.0-3.0); HEMATOCRIT 41.8 % (36.0-47.0); LYMPH # 2.2 10^3/uL (1.5-5.0); LYMPH % 25.6 % (24.0-44.0); MEAN CORPUSCULAR HEMOGLOBIN 31.3 pg (27.0-33.0); MEAN CORPUSCULAR HGB CONC 33.5 g/dl (32.0-36.5); MEAN CORPUSCULAR VOLUME 93.3 fl (80.0-96.0); MONO # 0.5 10^3/uL (0.0-0.8); MONO % 6.3 % (2.0-8.0); NEUTROPHILS # 5.7 10^3/uL (1.5-8.5); NEUTROPHILS % 66.4 % (36.0-66.0); PLATELET COUNT, AUTOMATED 281 10^3/uL (150-450); RED BLOOD COUNT 4.48 10^6/uL (4.00-5.40); WHITE BLOOD COUNT 8.6 10^3/uL (4.0-10.0)
[2023-10-27 13:30] LABS: ALBUMIN 4.3 G/DL (3.2-5.2); ALKALINE PHOSPHATASE 118 U/L (46-116); ALT/SGPT 33 U/L (7.0-40); AST/SGOT 14 U/L (<34); BILIRUBIN,TOTAL 0.4 MG/DL (0.3-1.2); BLOOD UREA NITROGEN 13 MG/DL (9-23); CALCIUM LEVEL 9.9 MG/DL (8.3-10.6); CARBON DIOXIDE LEVEL 30 MMOL/L (20-31); CHLORIDE LEVEL 106 MMOL/L (98-107); CHOLESTEROL LEVEL 219 MG/DL (<200); CHOLESTEROL RISK RATIO 2.83 (<5); CREATININE FOR GFR 0.66 MG/DL (0.55-1.30); GLOMERULAR FILTRATION RATE > 60.0 (>45); GLUCOSE, FASTING 119 MG/DL (74-106); HDL CHOLESTEROL 77.3 MG/DL (>40); LDL CHOLESTEROL 109.3 MG/DL (<100); NON-HDL-C 141.7 MG/DL; POTASSIUM SERUM 5.6 MMOL/L (3.5-5.1); SODIUM LEVEL 139 MMOL/L (136-145); TRIGLYCERIDES LEVEL 162 MG/DL (<150)
[2023-10-27 13:31] LABS: ERYTHROCYTE SEDIMENTATION RATE 27 mm/hr (0-30)
[2023-10-27 13:32] LABS: THYROID STIMULATING HORMONE 0.997 uIU/ML (0.55-4.78)
[2023-10-27 13:33] LABS: FREE T4 1.09 NG/DL (0.89-1.76)
[2023-10-27 13:44] LABS: HEMOGLOBIN A1c 5.4 % (4.0-6.0)
== END ==
LOC: M SFHCCLAY 07:19
PROVIDERS: ATTEND Family Medicine
DX: E78.2 Mixed hyperlipidemia (principal); Z13.1 Encounter for screening for diabetes mellitus; E03.9 Hypothyroidism, unspecified; I10 Essential (primary) hypertension; K21.9 Gastro-esophageal reflux disease without esophagitis; R42 Dizziness and giddiness; G47.33 Obstructive sleep apnea (adult) (pediatric); H92.02 Otalgia, left ear

== ENCOUNTER 2023-10-28 18:29 | Observation (INO) | payer MEDICARE, OTHER ==
[~2023-10-28] VITALS: Ht 157.5 cm; Wt 81.8 kg
[~2023-10-28 18:29] MED LIST changes: -AMOX875T2 PO; -CARBOT AS; -CIPR7.5D2 AS; -CIPRHCOTIC AS; -DEBR6.5S4 AS; -DIAZ5TAB PO; -GABA-1171 PO; -LEVO50TA5 PO; -MECL-86 PO; -TRAZ-252 PO; -[UNRECOGNIZED DRUG - CODE] PO
[2023-10-28 19:47] LABS: BASO # 0.1 10^3/uL (0.0-0.2); BASO % 0.6 % (0.0-1.0); EOS # 0.1 10^3/uL (0.0-0.5); EOS % 0.8 % (0.0-3.0); HEMATOCRIT 42.4 % (36.0-47.0); HEMOGLOBIN 14.2 g/dl (12.0-15.5); LYMPH # 2.7 10^3/uL (1.5-5.0); LYMPH % 28.7 % (24.0-44.0); MEAN CORPUSCULAR HEMOGLOBIN 30.9 pg (27.0-33.0); MEAN CORPUSCULAR HGB CONC 33.5 g/dl (32.0-36.5); MEAN CORPUSCULAR VOLUME 92.4 fl (80.0-96.0); MONO # 0.6 10^3/uL (0.0-0.8); MONO % 6.3 % (2.0-8.0); NEUTROPHILS % 63.3 % (36.0-66.0); RED BLOOD COUNT 4.59 10^6/uL (4.00-5.40); WHITE BLOOD COUNT 9.5 10^3/uL (4.0-10.0)
[2023-10-28] MEDS: MECLIZINE 25 MG TABLET PO ONE (19:55)
[2023-10-28] MEDS: NS 1,000 ML IV ONE (19:55)
[2023-10-28 20:33] LABS: PLATELET COUNT, AUTOMATED 250 10^3/uL (150-450)
[2023-10-28 20:37] LABS: INR 0.93; PARTIAL THROMBOPLASTIN TIME 25.6 SECONDS (24.8-34.2); PROTHROMBIN TIME 12.2 SECONDS (12.5-14.5)
[2023-10-28 20:52] LABS: CK-MB VALUE MASS < 1.0 NG/ML (<3.6)
[2023-10-28 20:55] LABS: BLOOD UREA NITROGEN 14 MG/DL (9-23); CALCIUM LEVEL 9.8 MG/DL (8.3-10.6); CARBON DIOXIDE LEVEL 26 MMOL/L (20-31); CHLORIDE LEVEL 101 MMOL/L (98-107); CPK CREATINE PHOSPHOKINASE 56 U/L (34-145); CREATININE FOR GFR 0.65 MG/DL (0.55-1.30); GLOMERULAR FILTRATION RATE > 60.0 (>45); GLUCOSE, FASTING 97 MG/DL (74-106); MB/CK RELATIVE INDEX 1.78 (< OR =4); POTASSIUM SERUM 4.2 MMOL/L (3.5-5.1); SODIUM LEVEL 135 MMOL/L (136-145)
[2023-10-28] MEDS: lamoTRIgine 100MG TAB PO SCH (21:00)
[2023-10-28] MEDS ORDERED: ISOVUE-370 76% 100ML VIAL As Ordered ONE (21:29)
[2023-10-28] MEDS: ASPIRIN 325 MG TAB PO ONE (23:30)
[2023-10-29] MEDS ORDERED: LEVO50TA5 PO (01:31)
[2023-10-29] MEDS ORDERED: MECL-86 PO (01:31)
[2023-10-29] MEDS ORDERED: GABA-1171 PO ×2 (01:31)
[2023-10-29] MEDS ORDERED: TRAZ-252 PO (01:31)
[2023-10-29] MEDS ORDERED: DIAZ5TAB PO (01:31)
[2023-10-29] MEDS ORDERED: HOME MED LIST COMPLETE! XX SCH (01:35)
[2023-10-29] MEDS: GABAPENTIN 300 MG CAP PO SCH (04:04)
[2023-10-29] MEDS: traZODone 50 MG TAB PO SCH (04:04)
[2023-10-29] MEDS: SIMVASTATIN 40 MG TAB PO SCH (04:05)
[2023-10-29] MEDS: LEVOTHYROXINE 50MCG TABLET (0.05MG) PO SCH (06:58)
[2023-10-29] MEDS: GABAPENTIN 100 MG CAP PO SCH (09:26)
[2023-10-29] MEDS: OMEPRAZOLE 20MG CAP PO SCH (09:27)
[2023-10-29] MEDS: SUCRALFATE 1 GM TAB PO SCH (09:27)
[2023-10-29] MEDS: ESCITALOPRAM OXALATE 10 MG TAB (LEXAPRO) PO SCH (09:27)
[2023-10-29] MEDS: ENOXAPARIN 40MG/0.4ML SYRINGE (J1650 PER 10MG) SC SCH (09:27)
[2023-10-29] MEDS: BENAZEPRIL 20 MG TAB PO SCH (09:45)
[2023-10-29 15:00] VITALS: BP 122/63; TEMP 97.2; O2SAT 95
[2023-10-29 20:55] VITALS: BP 121/61; TEMP 97.3; O2SAT 94
[2023-10-29] MEDS ORDERED: GABAPENTIN 300 MG CAP PO SCH (21:00)
[2023-10-29] MEDS ORDERED: SIMVASTATIN 40 MG TAB PO SCH (21:00)
[2023-10-30 04:00] VITALS: BP 142/72; TEMP 97.5; O2SAT 95
[2023-10-30 08:08] VITALS: BP 142/73
[2023-10-30] MEDS ORDERED: [UNRECOGNIZED DRUG - CODE] PO (08:29)
[2023-10-30 09:30] VITALS: BP_SYST 137; BP_SYST 140; BP_SYST 142; BP_DIAS 71; BP_DIAS 72
[2023-10-30] MEDS ORDERED: ONDANSETRON 4MG 2ML VIAL IV PRN (10:10)
[2023-10-30] MEDS: AMOXICILLIN 875 MG TAB PO SCH (11:34)
[2023-10-30] MEDS: CIPRODEX OTIC SUSP 7.5ML AS SCH (11:34)
[2023-10-30] MEDS: CARBAMIDE PEROXIDE 6.5% OTIC SOLN 15ML AS SCH (11:34)
[2023-10-30] MEDS ORDERED: AMOX875T PO (12:01)
[2023-10-30] MEDS ORDERED: CARBOT AS (12:01)
[2023-10-30] MEDS ORDERED: CIPR7.5D2 AS (12:01)
[2023-10-30] MEDS ORDERED: DEBR6.5S4 AS (14:33)
[2023-10-30] MEDS ORDERED: CIPRHCOTIC AS (14:33)
[2023-10-30] MEDS ORDERED: AMOX875T2 PO (14:33)
== END 2023-10-30 13:03 | disposition home or self-care (01) ==
LOC: M ED 18:29 → M ED INP 18:30 → M MSPAV 10-29 01:02 → UNDOADMOB 10-29 01:02 → M ED INP 10-29 14:45 → M MSPAV 10-29 14:45 → UNDODISOB 10-30 13:03
PROVIDERS: ADMIT Internal Medicine; ATTEND General Practice
DX: H81.10 Benign paroxysmal vertigo, unspecified ear (principal); H66.92 Otitis media, unspecified, left ear; H91.90 Unspecified hearing loss, unspecified ear; H70.93 Unspecified mastoiditis, bilateral; R11.2 Nausea with vomiting, unspecified; E78.5 Hyperlipidemia, unspecified; E03.9 Hypothyroidism, unspecified; F32.A Depression, unspecified; F41.1 Generalized anxiety disorder; G47.33 Obstructive sleep apnea (adult) (pediatric); I10 Essential (primary) hypertension; G57.61 Lesion of plantar nerve, right lower limb; G62.9 Polyneuropathy, unspecified; R26.81 Unsteadiness on feet; R00.1 Bradycardia, unspecified; M47.812 Spondylosis without myelopathy or radiculopathy, cervical region; M48.02 Spinal stenosis, cervical region; G31.1 Senile degeneration of brain, not elsewhere classified; M54.41 Lumbago with sciatica, right side; Z90.49 Acquired absence of other specified parts of digestive tract; Z90.710 Acquired absence of both cervix and uterus; Z98.890 Other specified postprocedural states; Z82.49 Family history of ischemic heart disease and other diseases of the circulatory system; Z83.3 Family history of diabetes mellitus; Z83.430 Family history of elevated lipoprotein(a); Z87.891 Personal history of nicotine dependence; Z79.899 Other long term (current) drug therapy; Z79.890 Hormone replacement therapy
CPT/HCPCS: 70450; 70496; 70498; 70551; 71045; 80048; 82550; 82553; 84484; 85025; 85027; 85610; 85730; 87486; 87581; 87633; 87798; 93005; 93041; 94760; 96372; 97116; 97161; 99285; G0378; J1650; Q9967

== ENCOUNTER 2023-11-01 12:44 | Outpatient (RCR) | payer MEDICARE, OTHER ==
[~2023-11-01 12:44] MED LIST changes: +AMOX875T2 PO; +CARBOT AS; +CIPR7.5D2 AS; +CIPRHCOTIC AS; +DEBR6.5S4 AS; +DIAZ5TAB PO; +GABA-1171 PO; +LEVO50TA5 PO; +MECL-86 PO; +TRAZ-252 PO; +[UNRECOGNIZED DRUG - CODE] PO
== END 2023-11-15 ==
LOC: M PT 12:44
PROVIDERS: ATTEND General Practice
DX: R42 Dizziness and giddiness (principal)

== ENCOUNTER → 2023-11-14 | Outpatient (CLI) | payer MEDICARE, OTHER ==
[~2023-11-14] MED LIST changes: +PROHANCE 279.3MG/ML 15ML VIAL ONE
== END ==
LOC: M PLAIMG 12:15
PROVIDERS: ATTEND Family Medicine
DX: I63.81 Other cerebral infarction due to occlusion or stenosis of small artery (principal); R42 Dizziness and giddiness
CPT/HCPCS: 70544; 70547; 70553; A9576

== ENCOUNTER → 2023-11-27 | Outpatient (CLI) | payer MEDICARE, OTHER ==
[~2023-11-27] MED LIST changes: -PROHANCE 279.3MG/ML 15ML VIAL ONE
== END ==
LOC: M PLAIMG 09:07
PROVIDERS: ATTEND Nurse Practitioner Family
DX: R93.89 Abnormal findings on diagnostic imaging of other specified body structures (principal); M48.02 Spinal stenosis, cervical region; G95.29 Other cord compression

== ENCOUNTER → 2023-12-06 | Outpatient (CLI) | payer MEDICARE, OTHER ==
[~2023-12-06] MED LIST changes: +E-Z-GAS II EFFERVESCENT PACKET (SODIUM BICARB./CITRIC ACID/SIMETHICONE) As Ordered ONE; +E-Z-HD 98% w/w 340GM SUSP BTL As Ordered ONE; +E-Z-PAQUE 96% w/w SUSP 176GM BTL As Ordered ONE
== END ==
LOC: M RAD 08:28
PROVIDERS: ATTEND Nurse Practitioner Family
DX: R10.13 Epigastric pain (principal)

== ENCOUNTER → 2023-12-26 | Outpatient (REF) | payer MEDICARE, OTHER ==
[~2023-12-26] MED LIST changes: -E-Z-GAS II EFFERVESCENT PACKET (SODIUM BICARB./CITRIC ACID/SIMETHICONE) As Ordered ONE; -E-Z-HD 98% w/w 340GM SUSP BTL As Ordered ONE; -E-Z-PAQUE 96% w/w SUSP 176GM BTL As Ordered ONE
[2023-12-26 16:43] LABS: BASO # 0.1 10^3/uL (0.0-0.2); BASO % 0.6 % (0.0-1.0); EOS # 0.1 10^3/uL (0.0-0.5); EOS % 0.7 % (0.0-3.0); HEMATOCRIT 39.8 % (36.0-47.0); HEMOGLOBIN 13.7 g/dl (12.0-15.5); LYMPH # 2.6 10^3/uL (1.5-5.0); LYMPH % 29.5 % (24.0-44.0); MEAN CORPUSCULAR HGB CONC 34.4 g/dl (32.0-36.5); MONO # 0.6 10^3/uL (0.0-0.8); MONO % 6.8 % (2.0-8.0); NEUTROPHILS # 5.5 10^3/uL (1.5-8.5); PLATELET COUNT, AUTOMATED 268 10^3/uL (150-450); RED BLOOD COUNT 4.28 10^6/uL (4.00-5.40); WHITE BLOOD COUNT 8.9 10^3/uL (4.0-10.0)
[2023-12-26 16:46] LABS: BLOOD UREA NITROGEN 13 MG/DL (9-23); CALCIUM LEVEL 9.2 MG/DL (8.3-10.6); CARBON DIOXIDE LEVEL 27 MMOL/L (20-31); CHLORIDE LEVEL 102 MMOL/L (98-107); CREATININE FOR GFR 0.72 MG/DL (0.55-1.30); GLOMERULAR FILTRATION RATE > 60.0 (>45); GLUCOSE, FASTING 95 MG/DL (74-106); INR 0.94; PARTIAL THROMBOPLASTIN TIME 24.5 SECONDS (24.8-34.2); POTASSIUM SERUM 4.4 MMOL/L (3.5-5.1); PROTHROMBIN TIME 12.3 SECONDS (12.5-14.5); SODIUM LEVEL 134 MMOL/L (136-145)
== END ==
LOC: M SFHCCLAY 16:29
PROVIDERS: ATTEND Orthopaedic Surgery
DX: M48.02 Spinal stenosis, cervical region (principal); G99.2 Myelopathy in diseases classified elsewhere; R82.90 Unspecified abnormal findings in urine; Z51.89 Encounter for other specified aftercare

== ENCOUNTER → 2024-05-17 | Outpatient (CLI) | payer MEDICARE, OTHER | LOC: M WHC 12:40 | PROVIDERS: ATTEND Nurse Practitioner Family | DX: Z12.31 Encounter for screening mammogram for malignant neoplasm of breast (principal); R92.323 Mammographic fibroglandular density, bilateral breasts ==

== ENCOUNTER → 2024-08-30 | Outpatient (CLI) | payer MEDICARE, OTHER | LOC: M EKG 15:13 | PROVIDERS: ATTEND Internal Medicine Cardiovascular Disease | DX: R00.2 Palpitations (principal); R42 Dizziness and giddiness ==

== ENCOUNTER → 2024-11-13 | Outpatient (CLI) | payer MEDICARE, OTHER | LOC: M OUTALCOH 12:50 | PROVIDERS: ATTEND Psychiatry & Neurology Psychiatry | DX: F10.20 Alcohol dependence, uncomplicated (principal) ==

== ENCOUNTER 2024-11-22 08:40 | Outpatient (RCR) | payer MEDICARE, OTHER ==
[~2024-11-22 08:40] MED LIST changes: +CARB15DR25 AS; -CARBOT AS
== END 2024-12-15 ==
LOC: M OUTALCOH 08:40
PROVIDERS: ATTEND Psychiatry & Neurology Psychiatry
DX: F10.20 Alcohol dependence, uncomplicated (principal)
CPT/HCPCS: 90837; 90853; G0463

== ENCOUNTER → 2024-12-09 | Outpatient (CLI) | payer MEDICARE, OTHER | LOC: M EKG 12:55 | PROVIDERS: ATTEND Physician Assistant | DX: R00.2 Palpitations (principal) ==

== ENCOUNTER → 2025-01-14 | Outpatient (REF) | payer MEDICARE, OTHER ==
[2025-01-14 18:46] LABS: BASO # 0.1 10^3/uL (0.0-0.2); BASO % 1.0 % (0.0-1.0); EOS # 0.2 10^3/uL (0.0-0.5); EOS % 2.7 % (0.0-3.0); LYMPH # 2.0 10^3/uL (1.5-5.0); LYMPH % 26.8 % (24.0-44.0); MONO # 0.5 10^3/uL (0.0-0.8); MONO % 7.2 % (2.0-8.0); NEUTROPHILS # 4.6 10^3/uL (1.5-8.5); NEUTROPHILS % 62.0 % (36.0-66.0); PLATELET COUNT, AUTOMATED 291 10^3/uL (150-450)
[2025-01-14 19:12] LABS: ESTIMATED AVERAGE GLUCOSE 126.0 MG/DL (60-110)
[2025-01-14 19:22] LABS: ALT/SGPT 32.0 U/L (7.0-40); AST/SGOT 22.0 U/L (<34); CALCIUM LEVEL 9.6 MG/DL (8.3-10.6); CARBON DIOXIDE LEVEL 29.0 MMOL/L (20-31); CHLORIDE LEVEL 102.0 MMOL/L (98-107); CREATININE FOR GFR 0.75 MG/DL (0.55-1.30); GLOMERULAR FILTRATION RATE 87.2 (>45); POTASSIUM SERUM 4.9 MMOL/L (3.5-5.1); SODIUM LEVEL 139.0 MMOL/L (136-145)
== END ==
LOC: M SFHCCLAY 13:49
PROVIDERS: ATTEND Physician Assistant
DX: R07.0 Pain in throat (principal); Z79.899 Other long term (current) drug therapy

== ENCOUNTER → 2025-02-27 | Outpatient (REF) | payer MEDICARE, OTHER | LOC: M SFHCCLAY 17:04 | PROVIDERS: ATTEND Nurse Practitioner Family | DX: R43.2 Parageusia (principal); Z20.822 Contact with and (suspected) exposure to COVID-19 ==

== ENCOUNTER → 2025-03-11 | Outpatient (REF) | payer MEDICARE, OTHER | LOC: M SFHCCAPE 13:47 | PROVIDERS: ATTEND Physician Assistant Medical | DX: A09 Infectious gastroenteritis and colitis, unspecified (principal) ==